=== PATIENT | female | born 1945 | race Caucasian/White ===

== ENCOUNTER 2023-04-11 17:29 | Emergency (ER) | payer MEDICARE, SELFPAY ==
[2023-04-11 17:42] VITALS: BP 103/76; PULSE 60; RESP 18; TEMP 36.5; O2SAT 98
--- NOTE | 2023-04-11 18:01 | ED.SKABFB ---
HPI - Skin/Abscess/Foreign Bdy General Chief complaint: Skin/Abscess/Foreign Body Stated complaint: poss shingles Source: patient, family and RN notes reviewed Mode of arrival: ambulatory History of Present Illness HPI narrative: 77-year-old female presents to the [facility] today with daughter, complaining of wound under the right breast. Per patient she stated she noticed it sometime on Tuesday patient has a history of shingles and was concerned that she may be developing shingles again. Patient denies any pain to palpation but does state feeling a electric shock pain under her right breast where the wound is located. Patient denies any fever, chills, upper respiratory symptoms, nausea, vomiting, or diarrhea. Patient has been using Benadryl as needed for itching. Patient states the rash is where her bra strap would be under her right breast. Patient denies any chest pain or shortness of breath. Related Data Home Medications Medication Instructions Recorded Confirmed clopidogrel 75 mg tablet 75 mg PO DIRECTED 04/11/23 04/11/23 furosemide 20 mg tablet 20 mg PO DIRECTED 04/11/23 04/11/23 levothyroxine 50 mcg tablet 50 mcg PO DIRECTED 04/11/23 04/11/23 memantine 5 mg tablet 5 mg PO DIRECTED 04/11/23 04/11/23 metoprolol succinate 50 mg 50 mg PO DIRECTED 04/11/23 04/11/23 tablet,extended release 24 hr mirtazapine 7.5 mg tablet 7.5 mg PO DIRECTED 04/11/23 04/11/23 rosuvastatin 20 mg tablet 20 mg PO DIRECTED 04/11/23 04/11/23 Allergies Allergy/AdvReac Type Severity Reaction Status Date / Time levofloxacin Allergy Unknown Unknown Verified 04/11/23 17:59 Review of Systems Review of Systems: CONSTITUTIONAL: Denies fever, chills, or sweats. EYES: Denies visual changes, redness, or discharge. ENT: Denies otalgia and sore throat CARDIOVASCULAR: Denies chest pain, palpitations, or edema. RESPIRATORY: Denies cough or dyspnea. GASTROINTESTINAL: Denies abdominal pain, nausea, vomiting, or diarrhea. GENITOURINARY: Denies dysuria or hematuria. SKIN: Positive for rash and itching. MUSCULOSKELETAL: Denies back pain, joint pain, or myalgia. NEUROLOGIC: Denies headache, numbness, or weakness. Pertinent positives per HPI. PMFSH Comments At the time of my signature, I reviewed and agree with the nursing past medical, surgical, social, and family history. There is no relevant family history pertinent to the patient complaint. Exam Narrative: GENERAL: This is a well-nourished, well-developed patient, in no apparent distress. HEAD: normocephalic, atraumatic. EYES: Sclera clear/white. Vision is grossly intact. EARS: External ears normal, auditory canals clear and without drainage. Hearing grossly intact. NOSE: External nose normal with no obvious nasal discharge, nares without redness, no rhinorrhea. THROAT: Mucous membranes moist, posterior pharynx clear. NECK: Neck supple, non-tender without lymphadenopathy, masses or thyromegaly. CARDIOVASCULAR: Regular rate and rhythm without murmurs, gallops, or rubs. RESPIRATORY: Clear to auscultation. Breath sounds equal bilaterally. No wheezes, rales, or rhonchi. GASTROINTESTINAL: Abdomen soft, non-tender, nondistended. Bowel sounds are active. No hepato-splenomegaly, or palpable masses. No guarding. SKIN: warm, intact. Erythema present under the right breast with no exudate. Area of erythema measuring 16cm x 6cm. Three superficial wounds measuring less than 0.5 cm in diameter. NEURO: awake, alert, and oriented to person, place and time. There were no obvious focal neurologic abnormalities. History of dementia. EXTREMITIES: No clubbing, cyanosis, or edema. No joint tenderness, effusion, or edema noted. BACK: Nontender without deformity or crepitance. No flank tenderness. Course Course Level of Care: Express Care Visit Vital Signs Vital signs: Vital Signs Temperature 97.7 F 04/11/23 17:42 Pulse Rate 60 04/11/23 17:42 Respiratory Rate 18 04/11/23 17:42
--- NOTE | 2023-04-11 18:30 | PC.NURSE ---
182 wound cleansed with saline and wound cleanser. area marked with skin marker and neosporin with non adherent dressing applied with paper tape. DI MERINO RN
== END 2023-04-11 18:22 | disposition home or self-care (01) ==
PROVIDERS: Emergency Provider Nurse Practitioner Family; PCP Family Medicine
DX: L03.311 Cellulitis of abdominal wall (principal); E78.00 Pure hypercholesterolemia, unspecified; I10 Essential (primary) hypertension; E03.9 Hypothyroidism, unspecified
CPT/HCPCS: 99203; G0463

== ENCOUNTER 2024-01-15 17:17 | Emergency (ER) | payer MEDICARE, MEDICAID, SELFPAY ==
[2024-01-15] VITALS (9 sets, daily range): BP systolic 119–137; BP diastolic 47–68; PULSE 62–75; RESP 14–20; TEMP 36.7; O2SAT 95–99
--- NOTE | ~2024-01-15 | CT_ITS ---
EXAMINATION: CT brain wo con DATE: 01/15/2024 19:08 INDICATION: Possible seizure . TECHNIQUE: Computed tomography (CT) of the head was performed without intravenous contrast. The mA wa s adjusted according to patient size. Iterative reconstruction technique was employed. The dose-lengt h product was 983.67 mGy-cm. COMPARISON: None. FINDINGS: No acute intracranial hemorrhage or extra-axial fluid collection. Asymmetric enlargement of the right temporal horn of the right lateral ventricle. No mass or herniati on. No acute ischemic infarct. Unremarkable dural venous sinus attenuation. No acute osseous abnormality. Sphenoid retention cyst/polyp, the remaining aerated spaces are clear. Moderate atrophy and chronic white matter change. Atherosclerotic intracranial calcification. Bilater al lens replacements. IMPRESSION: No acute intracranial process. 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 Reviewed, dictated and finalized at [facility]. ER TECHNICIAN IMPRESSION: No acute intracranial process. 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
--- NOTE | 2024-01-15 17:53 | ED.SEIZURE ---
HPI - Seizure General Chief Complaint: Seizure <Ronnell Girard MD - Last Filed: 01/15/24 19:01> Stated Complaint: SZ? <Ronnell Girard MD - Last Filed: 01/15/24 19:01> Time Seen by Provider: 01/15/24 17:28 <Ronnell Girard MD - Last Filed: 01/15/24 19:01> History of Present Illness HPI Narrative: This is an 78-year-old female, with history of hypothyroidism, Alzheimer's and hypertension, brought in by EMS from her [facility] for possible seizure. EMS reports nursing staff at the patient's [facility] noticed an approximate 32nd episode of tremors with decreased attentiveness. The patient quickly recovered without change in mental status or residual symptoms. The patient has no complaints at this time. The patient's daughter, at bedside notes the patient has a history of tremors and was recently moved to a new [facility] the past week. The patient otherwise appears to be at her baseline. <Ronnell Girard MD - Last Filed: 01/15/24 19:01> Related Data Home Medications: Home Medications Medication Instructions Recorded Confirmed clopidogrel 75 mg tablet 75 mg PO DIRECTED 04/11/23 01/11/24 furosemide 20 mg tablet 20 mg PO DIRECTED 04/11/23 01/11/24 levothyroxine 50 mcg tablet 50 mcg PO DIRECTED 04/11/23 01/11/24 memantine 5 mg tablet 5 mg PO DIRECTED 04/11/23 01/11/24 metoprolol succinate 50 mg 50 mg PO DIRECTED 04/11/23 01/11/24 tablet,extended release 24 hr mirtazapine 7.5 mg tablet 7.5 mg PO DIRECTED 04/11/23 01/11/24 rosuvastatin 20 mg tablet 20 mg PO DIRECTED 04/11/23 01/11/24 <Ronnell Girard MD - Last Filed: 01/15/24 19:01> Allergies/Adverse Reactions: Allergies Allergy/AdvReac Type Severity Reaction Status Date / Time levofloxacin Allergy Unknown Unknown Verified 01/15/24 17:38 <Ronnell Girard MD - Last Filed: 01/15/24 19:01> Review of Systems Review of Systems: CONSTITUTIONAL: Denies fever, chills, or sweats. CARDIOVASCULAR: Denies chest pain, palpitations, or edema. RESPIRATORY: Denies cough or dyspnea. GASTROINTESTINAL: Denies abdominal pain, nausea, vomiting, or diarrhea. GENITOURINARY: Denies dysuria or hematuria. SKIN: Denies rash or itching. MUSCULOSKELETAL: Denies back pain, joint pain, or myalgia. NEUROLOGIC: Denies headache, numbness, dizziness, or weakness. PSYCHIATRIC: Denies anxiety or depression. <Ronnell Girard MD - Last Filed: 01/15/24 19:01> PMFSH Past Medical History Medical History: Medical History Alzheimer's dementia with anxiety Benign essential HTN CAD (coronary artery disease) JOSE (generalized anxiety disorder) Hyperlipidemia LDL goal <130 Hypothyroidism (acquired) <Ronnell Girard MD - Last Filed: 01/15/24 19:01> Surgical History Surgical History: Surgical History No significant past surgical history <Ronnell Girard MD - Last Filed: 01/15/24 19:01> Social History Social History: Social History Smoking status: Never smoker <Ronnell Girard MD - Last Filed: 01/15/24 19:01> Exam Narrative: GENERAL: Well-developed, well-nourished, and in no acute distress. pleasantly demented HEAD: Normocephalic, atraumatic. EYES: PERRLA and EOMI. ENT: Nares clear, no rhinorrhea or epistaxis. Mucous membranes moist. Oropharynx without tonsillar hypertrophy exudate or other lesions. CHEST: Clear to auscultation. No respiratory distress. No wheezes rales or rhonchi HEART: Regular rate and rhythm. No murmur heard. Normal peripheral pulses. ABDOMEN: Soft, nontender, nondistended, normal active bowel sounds. EXTREMITIES: Normal range of motion. No edema. SKIN: Warm, dry, no rash. NEURO: Alert and oriented x1 (self). No focal deficit. Moving all 4 limbs spontaneously PSYCH: Normal mood and affect.
[2024-01-15 18:07] LABS: Basophils Percent Auto 0.4 % (0.2-1.2); Eosinophils Absolute Auto 0.3 K/mm3 (0-0.3); Eosinophils Percent Auto 2.8 % (0-4.4); Hematocrit 42.2 % (37.0-47.0); Hemoglobin 13.5 g/dL (12.0-15.0); Immature Granulocyte Absolute 0.05 K/mm3 (0.00-0.031); Immature Granulocyte Percent A 0.5 % (0-0.5); Lymphocytes Absolute Auto 2.39 K/mm3 (0.9-3.2); Lymphocytes Percent Auto 25.5 % (18.3-44.2); Mean Corpuscular Hemoglobin 29.6 pg (26-34); Mean Corpuscular Volume 92.5 fl (80-100); Monocytes Absolute Auto 0.8 K/mm3 (0.1-0.6); Monocytes Percent Auto 8.9 % (2.6-8.5); Neutrophils Absolute Auto 5.8 K/mm3 (1.3-6.7); Neutrophils Percent Auto 61.9 % (45.5-73.1); Platelet Count Result 242 k/mm3 (150-375); Red Blood Count 4.56 M/mm3 (4.2-5.4); Red Cell Distribution Width 13.5 % (11.5-14.5); White Blood Count 9.4 K/mm3 (4.5-10.0)
[2024-01-15 18:14] LABS: Appearance Urine Clear (Clear); Bacteria Urine None Seen /hpf; Bilirubin Urine Negative (Negative); Blood Urine Negative (Negative); Color Urine Yellow (Yellow); Glucose Urine UA Negative (Negative); Ketones Urine Negative (Negative); Leukocyte Esterase Ur Trace LEU/UL (Negative); Nitrate Urine Negative (Negative); Non Pathogenic Casts 0-2; Protein Urine Negative (Negative); RBC Urine 0-2 /hpf (0-2); Specific Grav Ur 1.011 (1.001-1.035); Squamous Epithelial Cell Urine None seen /hpf (Few); WBC Urine 0-5 /hpf
[2024-01-15 18:16] LABS: Lactic Acid Reflex 1.4 mmol/L (0.7-2.0)
[2024-01-15 18:20] LABS: Add Urine Microscopic? YES
[2024-01-15 18:23] LABS: Acetaminophen < 10 ug/mL (10-30); Ethanol < 10 mg/dL (<10); Salicylate < 1.0 mg/dL (2-20)
[2024-01-15 18:25] LABS: Alanine Aminotransferase 16 U/L (6-35); Albumin Level 4.3 g/dL (3.5-5.1); Alkaline Phosphatase 105 U/L (38-126); Anion Gap 6 mmol/L (8-16); Aspartate Amino Transferase 28 U/L (14-36); Bilirubin,Total 0.7 mg/dL (0.2-1.3); Blood Urea Nitrogen 19 mg/dL (7-17); Calcium 9.1 mg/dL (8.4-10.2); Carbon Dioxide 33 mmol/L (22-30); Chloride 99 mmol/L (98-107); Creatine Kinase 52 U/L (30-135); Estimated CRCL calculation 47 ml/min; Estimated Glomerular Filt Rate 60; Glucose 95 mg/dL (65-110); Sodium 138 mmol/L (137-145)
== END 2024-01-15 20:44 ==
PROVIDERS: Emergency Provider Preventive Medicine Aerospace Medicine; PCP Family Medicine
DX: R25.1 Tremor, unspecified (principal); I10 Essential (primary) hypertension; G30.9 Alzheimer's disease, unspecified; F02.84 Dementia in other diseases classified elsewhere, unspecified severity, with anxiety; I25.10 Atherosclerotic heart disease of native coronary artery without angina pectoris; E03.9 Hypothyroidism, unspecified; E78.5 Hyperlipidemia, unspecified; Z79.899 Other long term (current) drug therapy
CPT/HCPCS: 36415; 70450; 80053; 80307; 81001; 82550; 83605; 85025; 99284